=== PATIENT | female | born 1955 | race Caucasian/White ===

== ENCOUNTER 2024-11-18 11:56 | Inpatient (IN) | payer OTHER, MEDICARE ==
[2024-11-18 12:30] VITALS: BMI 19.9
[2024-11-18] MEDS ORDERED: diazePAM 5 MG TABLET PO PRN (13:08)
[2024-11-18] MEDS ORDERED: guaiFENesin 600 MG TABLET.ER (FP) PO PRN (13:08)
[2024-11-18] MEDS ORDERED: BENZOCAINE/MENTHOL (CHLORASEPTIC ) LOZENGE MM PRN (13:08)
[2024-11-18] MEDS ORDERED: LOPERAMIDE HCL 2 MG CAPSULE PO PRN (13:08)
[2024-11-18] MEDS ORDERED: BENZONATATE 200 MG CAPSULE PO PRN (13:08)
[2024-11-18] MEDS ORDERED: POLYETHYLENE GLYCOL (HEALTHYLAX) 3350 17 GM PACKET PO PRN (13:08)
[2024-11-18] MEDS ORDERED: BISMUTH SUBSALICYLATE 524 MG/30 ML PO PRN (13:08)
[2024-11-18] MEDS ORDERED: MAGNESIUM HYDROX 2400MG/30ML ORAL SUSPENSION 30 ML CUP PO PRN (13:08)
[2024-11-18] MEDS ORDERED: NALOXONE (NARCAN) HCL 4 MG/0.1 ML SPRAY NS PRN (13:08)
[2024-11-18] MEDS ORDERED: MAG HYDROX/AL HYDROX/SIMETH 30 ML UNIT-DOSE CUP PO PRN (13:08)
[2024-11-18] MEDS ORDERED: DICYCLOMINE HCL 10 MG CAPSULE PO PRN (13:08)
[2024-11-18] MEDS ORDERED: IBUPROFEN 400 MG TABLET (FP) PO PRN (13:08)
[2024-11-18] MEDS ORDERED: PRENATAL VITAMINS W/ FOLIC ACID TABLET (FP) PO ONE (13:42)
[2024-11-18] MEDS ORDERED: diazePAM 5 MG TABLET ONE (13:42)
[2024-11-18] MEDS: diazePAM 5 MG TABLET PO SCH (13:52)
[2024-11-18] MEDS: PRENATAL VITAMINS W/ FOLIC ACID TABLET (FP) PO SCH (13:53)
[2024-11-18] MEDS: hydrOXYzine PAMOATE 25 MG CAPSULE (FP) PO PRN (14:40)
[2024-11-18] MEDS: METHOCARBAMOL 500 MG TABLET PO PRN (14:40)
[2024-11-18] MEDS: IBUPROFEN 600 MG TABLET (FP) PO PRN (17:32)
[2024-11-18] MEDS: ACAMPROSATE CALCIUM 333 MG TABLET.DR PO SCH (22:55)
[2024-11-18] MEDS: THIAMINE 100 MG TABLET PO SCH (22:58)
[2024-11-18] MEDS: MELATONIN 5 MG TABLETS PO SCH (22:58)
[2024-11-19] MEDS: diazePAM 5 MG TABLET PO ONE (06:12)
[2024-11-19] MEDS: ONDANSETRON *ODT* 4 MG TABLET SL PRN (08:32)
[2024-11-19] MEDS: GABAPENTIN 100 MG CAPSULE PO SCH (10:37)
[2024-11-19] MEDS: levETIRAcetam 250 MG TABLET PO SCH (10:37)
[2024-11-19] MEDS: LIDOCAINE 5% TOPICAL PATCH TP SCH ×2 (12:00→12:26)
[2024-11-19 12:28] LABS: HEMATOCRIT 40.1 % (32.4-45.2); HEMOGLOBIN 13.5 GM/dL (10.7-15.3); MCHC 33.7 g/dl (32.0-36.0); MEAN CELL VOLUME 103.9 fl (80-96); MEAN PLT VOLUME 7.6 fl (7.5-11.1); PLATELET COUNT 224 10^3/uL (134-434); RBC 3.86 M/mm3 (3.60-5.2); RDW 15.6 % (11.6-15.6); WHITE BLOOD COUNT 8.6 K/mm3 (4.0-10.0)
[2024-11-19 12:37] LABS: CHLORIDE 103 mmol/L (98-107); POTASSIUM 4.2 mmol/L (3.5-5.1); SODIUM 137 mmol/L (136-145)
[2024-11-19 12:43] LABS: ANION GAP 4 mmol/L (4-13); CALCIUM 8.8 mg/dL (8.5-10.1); CO2 30 mmol/L (21-32)
[2024-11-19 12:44] LABS: BLOOD UREA NITROGEN 12.3 mg/dL (7-18); GLUCOSE,RANDOM 124 mg/dL (74-106)
[2024-11-19 12:46] LABS: SGPT/ALT 25 U/L (13-61)
[2024-11-19 12:47] LABS: CREATININE 0.5 mg/dL (0.55-1.3); SGOT/AST 14 U/L (15-37)
[2024-11-19 12:48] LABS: TOT PROT 5.8 g/dl (6.4-8.2)
[2024-11-19 12:49] LABS: ALBUMIN 3.2 g/dl (3.4-5.0); ALK PHOS 63 U/L (45-117)
[2024-11-19] MEDS: BUPRENORPHINE/NALOXONE 8 MG/2 MG FILM PACKET SL SCH (13:32)
[2024-11-19] MEDS: LIDOCAINE PATCH REMOVAL MC SCH ×2 (22:48→22:49)
[2024-11-20] MEDS: diazePAM 5 MG TABLET PO SCH (05:35)
[2024-11-20] MEDS: LIDOCAINE 5% TOPICAL PATCH TP PRN (10:49)
[2024-11-20] MEDS: LIDOCAINE PATCH REMOVAL MC SCH (22:43)
[2024-11-20] MEDS: ACETAMINOPHEN 325 MG TABLET (FP) PO PRN (22:45)
[2024-11-21] MEDS: diazePAM 5 MG TABLET PO SCH (06:20)
[2024-11-21] MEDS: NALOXONE (NYS OPIOID OVERDOSE PROGRAM) 4 MG/0.1 ML SPRAY NS SCH (12:45)
[2024-11-21] MEDS: BUPRENORPHINE/NALOXONE 8 MG/2 MG FILM PACKET SL SCH (23:31)
[2024-11-28 07:02] VITALS: BP 124/60; PULSE 81; RESP 16; TEMP 97.7
[2024-11-28] MEDS: NALOXONE (NYS OPIOID OVERDOSE PROGRAM) 4 MG/0.1 ML SPRAY NS SCH (11:07)
== END 2024-11-28 11:00 | disposition home or self-care (01) | DRG 895 ==
LOC: YASAS 11:56 → Y6N 13:37 → Y5N 11-24 13:35
PROVIDERS: ADMIT Allergy & Immunology; ATTEND Psychiatry & Neurology Pain Medicine
PROC: HZ42ZZZ Group Counseling for Substance Abuse Treatment, Cognitive-Behavioral (ICD-10-PCS; principal; 2024-11-18)
DX: F10.20 Alcohol dependence, uncomplicated (principal); F11.20 Opioid dependence, uncomplicated; F13.20 Sedative, hypnotic or anxiolytic dependence, uncomplicated; F12.20 Cannabis dependence, uncomplicated; Z85.89 Personal history of malignant neoplasm of other organs and systems; Z93.0 Tracheostomy status; Z87.891 Personal history of nicotine dependence
CPT/HCPCS: 36415; 80053; 80307; 85027; 86780; 87811; 93005; 93010; 99283-25; Q0162